=== PATIENT | female | born 1960 | race Caucasian/White ===

== ENCOUNTER 2022-05-01 | Emergency (ER) | payer SELFPAY ==
[~2022-05-01] VITALS: Ht 167.6 cm; Wt 85.0 kg
[~2022-05-01] MED LIST: NO MEDS
[2022-05-01 06:11] VITALS: BP 126/74
== END 2022-05-01 06:22 | disposition home or self-care (01) ==
LOC: ER
DX: S01.01XA Laceration without foreign body of scalp, initial encounter (principal); X58.XXXA Exposure to other specified factors, initial encounter; Y93.89 Activity, other specified; Y92.89 Other specified places as the place of occurrence of the external cause; Y99.8 Other external cause status; F10.229 Alcohol dependence with intoxication, unspecified; Y90.0 Blood alcohol level of less than 20 mg/100 ml
CPT/HCPCS: 12002; 70450; 99284; Z7610

== ENCOUNTER 2022-06-15 17:19 | Emergency (ER) | payer OTHER ==
[~2022-06-15] VITALS: Ht 157.5 cm; Wt 69.0 kg
[2022-06-15 17:29] VITALS: BP 151/80
== END 2022-06-15 18:22 | disposition home or self-care (01) ==
LOC: ER 17:19
DX: Z48.02 Encounter for removal of sutures (principal)
CPT/HCPCS: 99281; Z7610